=== PATIENT | male | born 1995 | race Caucasian/White ===

== ENCOUNTER 2025-08-19 05:58 | Emergency (ER) | payer OTHER, SELFPAY ==
[2025-08-19] VITALS (16 sets, daily range): BP systolic 117–141; BP diastolic 87–118; PULSE 82–123; RESP 7–22; TEMP 36.6; O2SAT 97–100; BMI 24.4
--- NOTE | 2025-08-19 06:35 | ED.GENADULT ---
HPI - General Adult General Chief complaint: Alcohol/Intoxication Stated complaint: Alcohol withdrawal Time Seen by Provider: 08/19/25 06:04 Source: patient Mode of arrival: ambulatory Limitations: no limitations History of Present Illness HPI narrative: Friendly, honest 30-year-old male presents to the emergency department for evaluation of alcohol withdrawal. Admits to daily drinking since age 21. Typically drinks about 5 beers per day but then has extra shots on the weekends. Has not gone more than 5 days over the last several years without drinking alcohol. Had previously had symptoms similar to what he is experiencing now if he stop drinking and would restart. He is noticing feeling of anxiety, no sleep for the past 4 days, nausea, inability to hold down any liquids, feeling restless. He has auditory hallucinations visual hallucinations. No reason to suspect that he has had a seizure and does not have a prior history of any seizures, even with alcohol withdrawal. He is highly motivated to stay off of alcohol. He went through a break-up with his girlfriend a few months ago and has had escalated drinking well unemployed since then. He has been living with a friend but has now made arrangements that he will be moving back home with his parents who are quite sikh over in [place], [place]. He admits that several min in his family do not drink alcohol because of prior alcoholism any will have a good support system once he gets back home. He has never been given medication to help with alcohol cessation in the past. He has never needed to sought help. He is very upfront and honest with his intentions. He is not currently working. Not currently attending any type of support group. Does not use any street drugs currently. Has taken Adderall a few times in the past but no regular use. He is not experiencing any focal neurological changes, no fevers. He has not had any recent falls or injury. He is not anticoagulated. Does have a mild headache which he attributes to lack of sleep, dull and achy. Denies other systemic symptoms times 12 systems. He reports no long-term medications, no allergies. Related Data Previous Rx's ?Medication ?Instructions ?Recorded diazepam 10 mg tablet (Valium) 10 mg PO .UD #8 tabs 08/19/25 Allergies Allergy/AdvReac Type Severity Reaction Status Date / Time No Known Drug Allergies Allergy Verified 08/19/25 06:17 Exam Const: Vital Signs, click to edit/add: Vital Signs - 24 hr 08/19/25 06:13 08/19/25 06:16 08/19/25 06:18 Temperature 98 F Pulse Rate 90 Pulse Rate [Pulse Oximeter] 123 H 97 Respiratory Rate 22 7 L 22 Blood Pressure Blood Pressure [Ri ght Arm] 134/98 H Blood Pressure [Ri ght Upper Arm] 140/115 H Pulse Oximetry 100 100 99 Oxygen Delivery Me thod Room Air Room Air 08/19/25 06:21 08/19/25 06:30 08/19/25 06:32 Temperature Pulse Rate 97 101 H 89 Pulse Rate [Pulse Oximeter] Respiratory Rate 9 L 17 11 L Blood Pressure 134/98 H 117/87 Blood Pressure [Ri ght Arm] Blood Pressure [Ri ght Upper Arm] Pulse Oximetry 100 100 99 Oxygen Delivery Me thod 08/19/25 06:45 08/19/25 06:47 08/19/25 07:00 Temperature Pulse Rate Pulse Rate [Pulse Oximeter] Respiratory Rate 18 12 8 L Blood Pressure 118/104 H Blood Pressure [Ri ght Arm] Blood Pressure [Ri ght Upper Arm] Pulse Oximetry Oxygen Delivery Me thod 08/19/25 07:02 08/19/25 07:03 08/19/25 07:11 Temperature Pulse Rate 86 Pulse Rate [Pulse Oximeter] Respiratory Rate 18 20 9 L Blood Pressure 141/107 H Blood Pressure [Ri ght Arm] Blood Pressure [Ri ght Upper Arm] Pulse Oximetry 100 Oxygen Delivery Me thod 08/19/25 07:15 08/19/25 07:17 08/19/25 07:30 Temperature Pulse Rate 82 90 86 Pulse Rate [Pulse Oximeter] Respiratory Rate 8 L 9 L Blood Pressure 141/105 H Blood Pressure [Ri ght Arm] Blood Pressure [Ri ght Upper Arm] Pulse Oximetry 97 99 98 Oxygen Delivery Me thod 08/19/25 07:32 Temperature Pulse Rate 83 Pulse Rate [Pulse Oximeter] Respiratory Rate Blood Pressure 141/118 H Blood Pressure [Ri ght Arm] Blood Pressure [Ri ght Upper Arm] Pulse Oximetry 98 Oxygen Delivery Me thod Documenting provider has reviewed patient's vital signs: yes Other: Tremulous, CIWA 19. Very forthcoming, open and seems honest. Highly motivated to quit drinking. Skin is slightly diaphoretic. Mild scleral icterus. Mucous membranes are dry. HENMT: Common normals: normocephalic Head and scalp: normocephalic Face and sinus: normal facial exam Eye: Common normals: conjunctivae normal General eye: normal appearance of both eyes Conjunctiva: conjunctiva(e) normal Neck & C-Spine: Common normals: full ROM and no lymphadenopathy General: normal visual inspection Resp: Common normals: normal respiratory effort, no use of accessory muscles and clear to auscultation bilaterally Effort & inspection: able to speak in complete sentences Auscultation: clear to auscultation bilaterally Cardio: Common normals: regular rate, regular rhythm, S1 normal heart sound, S2 normal heart sound and no murmurs Rate: regular rate Rhythm: regular rhythm Heart sounds: S1 normal and S2 normal GI: Common normals: Normal to inspection, nondistended, normoactive bowel sounds present, soft to palpation and non-tender Palpation: soft Other: Liver large 1 cm below costal margin. Extremity: Common normals: normal to inspection, normal capillary refill and no pedal edema Neuro: Speech: speech normal Gait (neuro): normal gait Motor exam: strength 5/5 throughout Other: Resting tremor noted. Psych: Common normals: speech normal Appearance: grossly normal Attitude: engaged Speech: normal speech Attention/concentration: attention grossly intact Memory/cognition: memory grossly intact Insight: insight good Judgement: judgment good Skin: Common normals: no rashes or lesions noted Narrative: No signs of self-injury. General skin exam: no rashes or lesions noted Course Course ED Course: 30-year-old male presenting with alcohol withdrawal, no evidence of seizure but certainly at risk for this. Very honest and open, highly motivated to seek treatment and lifestyle change. Will place peripheral IV, give 1 L of normal saline, typical baseline labs to look for any signs of his anemia, liver function and major electrolyte abnormalities that would need to be replaced. Also checking Mag level. Will give 10 mg of IV Valium and reassess. Give oral thiamine and folic acid. Anticipate oral Valium taper upon discharge. Reevaluation(s) Reevaluation #1: Update: Patient feeling much better after the Valium, symptoms of alcohol withdrawal have improved markedly. Labs reviewed with him. I do have concern regarding his liver function tests and bilirubin level but I do think this is related to the alcoholism. Stressed to him that he really can not drink alcohol anymore based on his level of liver dysfunction. He verbalizes understanding and agreement of that. We discussed management of his symptoms outpatient. He is going to receive some oral potassium replacement, oral magnesium replacement and Zofran prior to discharge. He tolerated the IV fluids well and has actually now been able to sip water here in the ED without difficulty. We discussed Valium taper plan. He was grateful for this offering. He will take 10 mg of Valium 3 times daily for 24 hours, then 10 mg twice daily for 24 hours, then once nightly for 3 nights, total of 8 tablets will be dispensed. His next dose will be at 2:00 p.m. today. Alarm symptoms such as seizures, worsening hallucinations reviews indications to come back to the ED. Stressed the importance of not drinking alcohol while taking the Valium. He is to make a follow-up appoint with a primary care doctor in 2 weeks to have his liver enzymes rechecked. Is encouraged to seek treatment with an outpatient alcohol resource plan. He reports that he will solidify this after his move back to [place]. Have encouraged him to make that move as soon as possible. All questions answered, written instructions are provided. He verbalizes understanding and agreement. Vital Signs Vital signs: Initial Vital Signs Temperature 98 F 08/19/25 06:13 Temperature Source Temporal Artery Scan 08/19/25 06:13 Pulse Rate 123 H 08/19/25 06:13 Respiratory Rate 22 08/19/25 06:13 Blood Pressure 140/115 H 08/19/25 06:13 Blood Pressure Mean 123 H 08/19/25 06:13 Blood Pressure Position Semi-Fowlers 08/19/25 06:13 Pulse Oximetry 100 08/19/25 06:13 Oxygen Delivery Method Room Air 08/19/25 06:13 Vital Signs Temperature 98 F 08/19/25 06:13 Pulse Rate 123 H 08/19/25 06:13 Respiratory Rate 22 08/19/25 06:13 Blood Pressure 140/115 H 08/19/25 06:13 Pulse Oximetry 100 08/19/25 06:13 Oxygen Delivery Method Room Air 08/19/25 06:13 Temperature 98 F 08/19/25 06:13 Pulse Rate 83 08/19/25 07:32 Respiratory Rate 9 L 08/19/25 07:17 Blood Pressure 141/118 H 08/19/25 07:32 Pulse Oximetry 98 08/19/25 07:32 Oxygen Delivery Method Room Air 08/19/25 06:18 Medications Administered Medications: Discontinued Medications Generic Name Dose Route Start Last Admin Trade Name Phillip PRN Reason Stop Dose Admin Diazepam 10 mg 08/19/25 06:31 08/19/25 06:39 Diazepam 5 Mg/Ml Inj IV 08/19/25 06:32 10 mg ONCE ONE Administration Folic Acid 1 mg 08/19/25 06:31 08/19/25 07:01 Folic Acid 1 Mg Tablet PO 08/19/25 06:32 1 mg ONCE ONE Administration Sodium Chloride 1,000 mls @ 1,000 mls/hr 08/19/25 06:31 08/19/25 08:01 0.9 % Sodium Chloride 1000 Ml IV 08/19/25 07:30 Infused .Q1H BELTRAN Infusion Magnesium Oxide 400 mg 08/19/25 07:21 08/19/25 07:56 Magnesium Oxide 400 Mg Tablet PO 08/19/25 07:22 400 mg ONCE ONE Administration Ondansetron HCl 4 mg 08/19/25 07:20 08/19/25 07:45 Ondansetron Odt 4 Mg Tab PO 08/19/25 07:21 4 mg ONCE ONE Administration Potassium Chloride 40 meq 08/19/25 07:20 08/19/25 07:56 Potassium Chloride 10 Meq Capsule Er PO 08/19/25 07:21 40 meq ONCE ONE Administration Thiamine HCl 100 mg 08/19/25 06:31 08/19/25 07:01 Thiamine 100 Mg Tablet PO 08/19/25 06:32 100 mg ONCE ONE Administration Medical Decision Making Lab Data Lab results reviewed: Yes I reviewed the patient's lab results Lab results narrative: No signs of severe anemia, use actually fairly hemoconcentrated which is likely the consequence of dehydration. Mild we low sodium but most importantly does have significant elevation in liver enzymes reflecting what is likely alcoholic hepatitis. And anion gap secondary to dehydration. Elevation of bilirubin secondary to alcoholic disease as well. Discussed findings with patient. He is willing to do outpatient follow-up. Labs: Lab Results 08/19/25 Range/Units 06:11 WBC 3.56 L (4.50-11.00) K/uL RBC 5.17 (4.30-5.90) m/uL Hgb 17.6 H (13.5-17.5) gm/dL Hct 48.9 (37.0-53.0) % MCV 95 (80-100) fL MCH 34 (26-34) pg MCHC 36 (32-36) gm/dL RDW Coeff of Isabelle 11.9 (11.5-15.5) % Plt Count 90 L (140-440) K/uL Neut % (Auto) 75.3 H (42.0-72.0) % Lymph % (Auto) 8.7 L (20-44) % [place] % (Auto) 15.4 H (0.0-11.0) % Eos % (Auto) 0.0 (0.0-7.0) % Baso % (Auto) 0.3 (0.0-3.0) % Neut # (Auto) 2.70 (1.7-7.0) K/uL Lymph # (Auto) 0.30 L (0.90-2.90) K/uL [place] # (Auto) 0.50 (0.00-0.90) K/UL Eos # (Auto) 0.00 (0.00-0.50) K/uL Baso # (Auto) 0.00 (0.00-0.30) K/uL Abs Immat Gran (auto) 0.00 (0.00-0.30) K/uL Imm/Tot Granulo (auto) 0.3 % Sodium 133 L (135-149) mmol/L Potassium 3.3 L (3.6-5.1) mmol/L Chloride 83 L (96-114) mmol/L Carbon Dioxide 30 (20-32) mmol/L Anion Gap 20 H (7-15) mEq/L BUN 18 (5-24) mg/dL Creatinine 1.2 (0.5-1.5) mg/dL Estimated Creat Clear 90.01 Estimated GFR 83 ml/min Glucose 138 H (60-115) mg/dL Calcium 10.2 (8.4-10.6) mg/dL Magnesium 1.6 (1.5-2.6) mg/dL Total Bilirubin 6.1 H (0.1-1.5) mg/dL AST 258 H (12-35) U/L ALT 160 H (4-50) U/L Alkaline Phosphatase 120 (40-150) U/L Total Protein 8.2 (6.0-8.3) g/dL Albumin 4.9 (3.3-5.0) g/dL Discharge Plan Discharge Clinical Impression: Alcohol withdrawal syndrome, Alcoholic hepatitis Patient Disposition: Home, Self-Care Condition: Improved Instructions: Alcohol Withdrawal (DC) Additional Instructions: As we discussed, you are exhibiting classic symptoms of alcohol withdrawal which can be very dangerous to your health. Based on your labs, your liver is quite inflamed by the alcohol but can heal. You need to stop drinking alcohol completely. To help reduce the severe symptoms of alcohol withdrawal, you were given Valium in the emergency room. I want you to take another dose by mouth today at 2:00 p.m., then at 10:00 p.m.. Tomorrow, you will take a dose at 8:00 a.m. and 8:00 p.m., then 1 pill at bedtime each additional day until gone. Symptoms should be markedly improved in just a few days. Do not drink any alcohol while you are using the Valium. I would recommend that you go ahead and move as quickly as possible, potentially even this weekend so that you can get a fresh start around those that are not regularly using alcohol. You need to establish care with a primary care provider to have your liver enzymes rechecked in about 2 weeks. They can also see if things have improved enough to start you on a medicine to help curb alcohol cravings like naltrexone. If you have seizures, loss of consciousness or return of severe symptoms, please return to the emergency room. No work or driving for 48 hours on this taper program. Activity Level: Activity as Tolerated Discharge Diet: Regular Prescriptions: New diazepam [Valium] 10 mg tablet 10 mg PO .UD Qty: 8 0RF Rx Instructions: 1 pill by mouth 3 times daily for 1d, then 2x daily for 1d, then nightly for 3 nights Follow Up/Referrals: Provider,Not a Local [Primary Care Provider, Family Practice]
[2025-08-19] MEDS: diazePAM 5 MG/ML inj 10 MG IV (06:39)
[2025-08-19 06:47] LABS: Hematocrit* 48.9 % (37.0-53.0); Hemoglobin* 17.6 gm/dL (13.5-17.5); Immature Granulocytes Pct Auto 0.3 %; Mean Corpuscular HGB Conc 36 gm/dL (32-36); Mean Corpuscular Hemoglobin 34 pg (26-34); Mean Corpuscular Volume 95 fL (80-100); RDW Coefficient of Variation % 11.9 % (11.5-15.5); Red Blood Count* 5.17 m/uL (4.30-5.90); White Blood Count* 3.56 K/uL (4.50-11.00)
[2025-08-19 06:48] LABS: Immature Granulocytes Abs Auto 0.00 K/uL (0.00-0.30); Lymphocytes Absolute Auto 0.30 K/uL (0.90-2.90); Slide Review Reflex No
[2025-08-19 06:56] LABS: Albumin* 4.9 g/dL (3.3-5.0); Chloride* 83 mmol/L (96-114); Sodium* 133 mmol/L (135-149)
[2025-08-19 06:57] LABS: Potassium* 3.3 mmol/L (3.6-5.1)
[2025-08-19 06:59] LABS: Alanine Aminotransferase* 160 U/L (4-50); Alkaline Phosphatase* 120 U/L (40-150); Anion Gap 20 mEq/L (7-15); Aspartate Amino Transferase* 258 U/L (12-35); Bilirubin Total* 6.1 mg/dL (0.1-1.5); Blood Urea Nitrogen* 18 mg/dL (5-24); Carbon Dioxide* 30 mmol/L (20-32); Creatinine* 1.2 mg/dL (0.5-1.5); Est. Creatinine Clearance* 90.01; Estimated Glomerular Filt Rate 83 ml/min
[2025-08-19 07:00] LABS: Calcium* 10.2 mg/dL (8.4-10.6); Glucose* 138 mg/dL (60-115); Total Protein* 8.2 g/dL (6.0-8.3)
[2025-08-19] MEDS: FOLIC ACID 1 MG TABLET PO (07:01)
[2025-08-19] MEDS: THIAMINE 100 MG TABLET PO (07:01)
[2025-08-19] MEDS: ONDANSETRON ODT 4 MG TAB PO (07:45)
[2025-08-19] MEDS: MAGNESIUM OXIDE 400 MG TABLET PO (07:56)
[2025-08-19] MEDS: POTASSIUM CHLORIDE 10 MEQ CAPSULE ER 40 MEQ PO (07:56)
== END 2025-08-19 08:08 | disposition home or self-care (01) ==
PROVIDERS: Emergency Provider Family Medicine
DX: K70.10 Alcoholic hepatitis without ascites (principal); E86.0 Dehydration; E87.1 Hypo-osmolality and hyponatremia; F10.239 Alcohol dependence with withdrawal, unspecified
CPT/HCPCS: 36415; 80053; 83735; 85025; 96361; 96374; 99284; 99285; A9270; J3360; J7030